=== PATIENT | female | born 1990 | race Hispanic/Latino ===

== ENCOUNTER 2016-10-06 04:43 | Emergency (ER) | payer SELFPAY ==
[2016-10-06 05:01] LABS: Bilirubin Negative (Negative); Blood, Urine Small (Negative); Clarity Clear (Clear); Glucose, Urine (Dipstick) Negative (Negative); Leukocyte Negative (Negative); Nitrite Negative (Negative); Protein, Urine (Dipstick) Negative (Neg-Trace); Urobilinogen 0.2 mg/dL (0.2-1.0); pH, Urine 6.5 (5.0-9.0)
[2016-10-06 05:05] LABS: Pregu Control Bar Appear? YES (CONTROL BAR)
[2016-10-06 05:08] LABS: Bacteria/HPF Rare-Few HPF (None Seen); Squamous Epithelial 0-3 HPF (0-3); WBC/HPF None Seen HPF (0-3)
[2016-10-06 05:16] LABS: Amphetamine Not Detected (NotDetected); Barbiturates Screen Not Detected (NotDetected); Benzodiazepine Screen Not Detected (NotDetected); Cocaine Metabolite Screen Not Detected (NotDetected); Medtox Control Line Valid? VALID (VALID); Methadone Not Detected (NotDetected); Methamphetamine Not Detected (NotDetected); Opiate Screen Not Detected (NotDetected); Oxycodone Screen Not Detected (NotDetected); Phencyclidine (PCP) Not Detected (NotDetected); THC/Cannabinoid Screen Not Detected (NotDetected); Tricyclic Screen Not Detected (NotDetected)
[2016-10-06] MEDS ORDERED: Ketorolac Tromethamine 30 MG/ML VIAL ONE (05:22)
[2016-10-06 05:34] LABS: #Basophils 0.1 thou/uL (0.0-0.2); #Eosinphils 0.1 thou/uL (0.0-0.7); #Lymphocytes 2.9 thou/uL (1.20-3.40); #Monocytes 0.4 thou/uL (0.11-0.59); #Neutrophils 3.6 thou/uL (1.40-6.50); %Basophils 1.3 % (0.0-1.0); %Eosinophils 0.9 % (0.0-10.0); %Lymphocytes 40.6 % (21.0-51.0); %Neutrophils 51.2 % (42.0-75.0); Hemoglobin 13.5 g/dL (12.0-16.0); Mean Corpuscular HGB CONC 33.5 g/dL (32.0-36.0); Mean Corpuscular Volume 92.7 fl (81.0-99.0); Mean Platelet Volume 11.5 fL (7.4-10.4); Platelet Count 213 thou/uL (130-400); RBC Distribution Width 11.5 % (11.5-14.5); Red Blood Cell (RBC) Count 4.36 mill/uL (4.20-5.40); White Blood Cell (WBC) Count 7.1 thou/uL (4.8-10.8)
[2016-10-06 05:40] LABS: ALT (SGPT) 12 U/L (0-55); AST (SGOT) 15 U/L (5-34); Albumin 4.1 g/dL (3.5-5.0); Alkaline Phosphatase 71 U/L (40-150); Anion Gap 14 mmol/L (10-20); BUN (Urea Nitrogen) 13 mg/dL (7.0-18.7); Bilirubin, Total 0.3 mg/dL (0.2-1.2); Calc. Creatinine Clearance 0 mL/min (70-130); Calcium 9.3 mg/dL (7.8-10.44); Carbon Dioxide 22 mmol/L (22-29); Chloride 106 mmol/L (98-107); Estimated GFR-MDRD Greater than 90; Globulin 3.8 g/dL (2.4-3.5); Glucose 96 mg/dL (70-105); Potassium 3.9 mmol/L (3.5-5.1); Protein, Total 7.9 g/dL (6.0-8.3); Sodium 138 mmol/L (136-145)
[2016-10-06] MEDS ORDERED: Tamsulosin HCl 0.4 MG CAP ONE (05:48)
--- NOTE | 2016-10-06 08:47 | CT ---
PRELIMINARY REPORT/[facility]/EMERGENCY AFTER HOURS PROCEDURE: EXAM: CT Abdomen and Pelvis Without Intravenous Contrast. CLINICAL HISTORY: 26 years old, female; Pain; Abdominal pain; Flank; Right; Prior surgery; Surgery date: 6+ months; [place] rgery type: Gallbladder - 2010; Patient HX: Rt flank pain for 1.5 weeks; No n/v/d; Negative preg vern t this date; Additional info: N/a TECHNIQUE: Axial computed tomography images of the abdomen and pelvis without intravenous contrast. Coronal reformatted images were created and reviewed. COMPARISON: No relevant prior studies available. FINDINGS: The lung bases are clear. Right kidney: No intrarenal stone, hydronephrosis or visible mass. No hydroureter or visible ureteral stone. Left kidney: No intrarenal stone, hydronephrosis or visible mass. No hydroureter or visible ureteral stone. Bilaterally, no significant perinephric stranding or fluid to strongly suggest pyelonephritis. Lack of the above findings on noncontrast CT does not entirely exclude the diagnosis of acute pyelon ephritis. Please correlate with clinical and laboratory evaluation. Prior cholecystectomy, no significant biliary tree dilation. Unremarkable appearance of the liver, spleen, adrenal glands, and pancreas. No free air, ascites, or bowel distention. No retroperitoneal adenopathy. CT pelvis: Possibly some mild diffuse urinary bladder wall thickening. While nonspecific, this could indicate evidence for cystitis. Please correlate clinically. The appendix is visualized and appears normal. There are no CT findings to strongly suggest diverticulitis. No abnormal mass or fluid collection in the pelvis. IMPRESSION: No renal or ureteral calculus. No hydronephrosis or hydroureter. No perinephric fluid, see above. Mild urinary bladder wall thickening, see above discussion. Normal appendix. No free air or bowel distention. Prior cholecystectomy, no significant biliary tree dilation. Other findings discussed above. Thank you for allowing us to participate in the care of your patient. Dictated and Authenticated by: Piotr Mendoza MD 10/06/2016 7:00 AM Central Time ([place] \T\ [place]) EMERGENT AFTER HOURS CT ABDOMEN AND PELVIS: FINAL REPORT IMPRESSION: I agree with the preliminary interpretation provided by [facility]. No evidence for urinary tract calculus or hydronephrosis. POS: [facility]
== END 2016-10-06 07:23 | disposition home or self-care (01) ==
LOC: MADERS 04:43
DX: R30.0 Dysuria (principal); K21.9 Gastro-esophageal reflux disease without esophagitis
CPT/HCPCS: 74176; 80053; 80306; 81003; 81015; 81025; 85025; 96374; J1885

== ENCOUNTER 2020-04-05 21:59 | Emergency (ER) | payer OTHER, SELFPAY ==
[2020-04-05] MEDS ORDERED: predniSONE 20 MG TAB ONE (22:21)
[2020-04-05] MEDS ORDERED: EPINEPHrine 1 MG/ML AMP ONE (22:21)
== END 2020-04-05 23:24 | disposition home or self-care (01) ==
LOC: MADERS 21:59
DX: L50.0 Allergic urticaria (principal); K21.9 Gastro-esophageal reflux disease without esophagitis
CPT/HCPCS: 96372; 99283; J0171; J7512

== ENCOUNTER 2020-05-29 01:27 | Emergency (ER) | payer OTHER, SELFPAY ==
--- NOTE | 2020-05-29 07:28 | RAD ---
RADIOGRAPH CHEST 1 VIEW: DATE: 05/29/2020 HISTORY: 29-year-old female with chest pain FINDINGS: There are no airspace densities, pulmonary edema, pneumothorax, or cardiomegaly. The lateral costophr enic angles are sharp. IMPRESSION: No acute cardiopulmonary findings.
== END 2020-05-29 02:35 | disposition home or self-care (01) ==
LOC: MADERS 01:27
DX: U07.1 COVID-19 (principal); E86.0 Dehydration; K21.9 Gastro-esophageal reflux disease without esophagitis
CPT/HCPCS: 71045; 93005